=== PATIENT | male | born 1960 | race Caucasian/White ===

== ENCOUNTER → 2018-05-31 | Outpatient (CLI) | payer OTHER | END | disposition home or self-care (01) | LOC: WOUND 13:54 | PROVIDERS: ATTEND Family Medicine | DX: E11.621 Type 2 diabetes mellitus with foot ulcer (principal); L97.511 Non-pressure chronic ulcer of other part of right foot limited to breakdown of skin; M14.672 Charcot's joint, left ankle and foot; E11.69 Type 2 diabetes mellitus with other specified complication; M86.9 Osteomyelitis, unspecified; L84 Corns and callosities; I10 Essential (primary) hypertension; E78.5 Hyperlipidemia, unspecified; Z87.891 Personal history of nicotine dependence | CPT/HCPCS: 97597; 99215 ==

== ENCOUNTER → 2018-06-03 | Outpatient (CLI) | payer OTHER | END | disposition home or self-care (01) | LOC: CFH 05-31 13:45 | PROVIDERS: ATTEND Family Medicine | DX: E11.621 Type 2 diabetes mellitus with foot ulcer (principal); L97.519 Non-pressure chronic ulcer of other part of right foot with unspecified severity; M86.9 Osteomyelitis, unspecified ==

== ENCOUNTER → 2018-06-06 | Outpatient (CLI) | payer OTHER | END | disposition home or self-care (01) | LOC: WOUND 08:50 | PROVIDERS: ATTEND Podiatrist Foot & Ankle Surgery | DX: E11.621 Type 2 diabetes mellitus with foot ulcer (principal); L97.512 Non-pressure chronic ulcer of other part of right foot with fat layer exposed; M14.672 Charcot's joint, left ankle and foot; E11.69 Type 2 diabetes mellitus with other specified complication; L84 Corns and callosities; M86.171 Other acute osteomyelitis, right ankle and foot; I10 Essential (primary) hypertension; E78.5 Hyperlipidemia, unspecified; M20.41 Other hammer toe(s) (acquired), right foot; Z87.891 Personal history of nicotine dependence | CPT/HCPCS: 11042 ==

== ENCOUNTER → 2018-06-13 | Outpatient (CLI) | payer OTHER | END | disposition home or self-care (01) | LOC: WOUND 09:29 | PROVIDERS: ATTEND Podiatrist Foot & Ankle Surgery | DX: E11.621 Type 2 diabetes mellitus with foot ulcer (principal); L97.512 Non-pressure chronic ulcer of other part of right foot with fat layer exposed; M14.672 Charcot's joint, left ankle and foot; M14.671 Charcot's joint, right ankle and foot; E11.69 Type 2 diabetes mellitus with other specified complication; M86.171 Other acute osteomyelitis, right ankle and foot; L84 Corns and callosities; I10 Essential (primary) hypertension; E78.5 Hyperlipidemia, unspecified; M20.41 Other hammer toe(s) (acquired), right foot; Z87.891 Personal history of nicotine dependence | CPT/HCPCS: 11042 ==

== ENCOUNTER 2018-06-14 06:01 | Day surgery (SDC) | payer OTHER ==
[~2018-06-14] VITALS: Ht 177.8 cm; Wt 102.0 kg
[2018-06-14] MEDS ORDERED: LACTATED RINGERS 1,000 ML IV SCH (06:17)
[2018-06-14] MEDS ORDERED: BUPIVACAINE/PF 0.5% ONE (06:20)
[2018-06-14] MEDS ORDERED: LIDOCAINE/PF 1%, 30ML ONE (06:20)
[2018-06-14] MEDS ORDERED: MIDAZOLAM 1 MG/ML, 2ML ONE (06:49)
[2018-06-14] MEDS ORDERED: FENTANYL PF 100 MCG/2ML ONE (06:50)
[2018-06-14 06:56] VITALS: BP 130/81
[2018-06-14] MEDS ORDERED: KETOROLAC 30 MG/1 ML ONE (06:56)
[2018-06-14] MEDS ORDERED: ONDANSETRON ODT 8 MG PO ONE (07:00)
[2018-06-14] MEDS ORDERED: ACETAMINOPHEN 500 MG TABLET PO ONE (07:00)
[2018-06-14] MEDS ORDERED: GABAPENTIN 300 MG CAPSULE PO ONE (07:00)
[2018-06-14 07:06] LABS: ALANINE AMINOTRANSFERASE 32 U/L (12-78); ALBUMIN 3.7 g/dL (3.4-5.0); ANION GAP 7 mmol/L (5-15); CALCIUM 9.2 mg/dL (8.5-10.1); CHLORIDE 106 mmol/L (98-107); CREATININE 1.36 mg/dL (0.7-1.3)
[2018-06-14 07:09] LABS: ALKALINE PHOSPHATASE 49 U/L (45-117); BILIRUBIN,TOTAL 0.5 mg/dL (0.2-1.0); TOTAL PROTEIN 7.6 g/dL (6.4-8.2)
[2018-06-14] MEDS ORDERED: ONDANSETRON ODT 8 MG PO PRN (07:30)
[2018-06-14] MEDS ORDERED: PROMETHAZINE 25 MG SUPP PR PRN (07:30)
[2018-06-14] MEDS ORDERED: MIDAZOLAM 1 MG/ML, 2ML IV PRN (07:30)
[2018-06-14] MEDS ORDERED: HYDROmorphone 1 MG/ML, 1ML IV PRN (07:30)
[2018-06-14] MEDS ORDERED: LABETALOL 5MG/ML, 20ML IV PRN (07:30)
[2018-06-14] MEDS ORDERED: OXYcodone 5 MG/5 ML ORAL.SOL UDC PO PRN (07:30)
[2018-06-14] MEDS ORDERED: MEPERIDINE/PF 25MG/0.5ML IVPush PRN (07:30)
[2018-06-14] MEDS ORDERED: FENTANYL PF 100 MCG/2ML IV PRN (07:30)
[2018-06-14] MEDS ORDERED: ALBUTEROL/IPRATROPIUM 2.5MG/0.5MG, 3 ML NPPB PRN (07:30)
[2018-06-14] MEDS ORDERED: DEXAMETHASONE 4 MG/ML, 1ML ONE (07:37)
[2018-06-14] MEDS ORDERED: PROPOFOL 10 MG/ML, 20ML ONE (07:37)
== END 2018-06-14 09:45 | disposition home or self-care (01) ==
LOC: OUT 06:01
PROVIDERS: ATTEND Podiatrist Foot & Ankle Surgery
DX: M86.8X7 Other osteomyelitis, ankle and foot (principal); E11.621 Type 2 diabetes mellitus with foot ulcer; L97.516 Non-pressure chronic ulcer of other part of right foot with bone involvement without evidence of necrosis; I10 Essential (primary) hypertension; E78.5 Hyperlipidemia, unspecified; Z79.899 Other long term (current) drug therapy; Z86.14 Personal history of Methicillin resistant Staphylococcus aureus infection; Z88.0 Allergy status to penicillin
CPT/HCPCS: 28825; 36415; 80053; 82962; 87070; 87075; 87176; 87186; 87205; 88305; 93005; J1100; J1885; J2250; J2704; J3010; J3490; J7120; Q0162

== ENCOUNTER → 2018-06-27 | Outpatient (CLI) | payer OTHER | END | disposition home or self-care (01) | LOC: WOUND 08:37 | PROVIDERS: ATTEND Podiatrist Foot & Ankle Surgery | DX: T87.89 Other complications of amputation stump (principal); E11.621 Type 2 diabetes mellitus with foot ulcer; L97.518 Non-pressure chronic ulcer of other part of right foot with other specified severity; E11.69 Type 2 diabetes mellitus with other specified complication; M86.171 Other acute osteomyelitis, right ankle and foot; L84 Corns and callosities; I10 Essential (primary) hypertension; E78.5 Hyperlipidemia, unspecified; Z87.891 Personal history of nicotine dependence; Y83.5 Amputation of limb(s) as the cause of abnormal reaction of the patient, or of later complication, without mention of misadventure at the time of the procedure | CPT/HCPCS: 99214 ==